=== PATIENT | male | born 1950 | race Caucasian/White ===

== ENCOUNTER 2017-01-09 17:14 | Emergency (ER) | payer BC ==
--- NOTE | 2017-01-09 18:00 | EDM.PDOC ---
ED HPI GENERAL MEDICAL PROBLEM - General Chief Complaint: Cardiovascular Problem Stated Complaint: SOB Time Seen by Provider: 01/09/17 17:58 Source of Information: Reports: Patient History Limitations: Reports: No Limitations - History of Present Illness INITIAL COMMENTS - FREE TEXT/NARRATIVE: Patient is a 66-year-old male presents ED with a 3 week history of shortness of breath and intermittent substernal chest discomfort onset with exertion and relieved with rest. Patient states over the past week or so he's noticed a significant decrease in his ability to be physically active. Unclear exact onset date for Rico fib. Does not report any significant palpitations. He was evaluated by his PCP earlier today with labwork, EKG, and chest x-ray obtained. Patient does have a history of 1st degree family history of heart disease brother and dad. He has no prior history himself. Currently does not smoke, utilize alcohol, or recreational drugs. Patient reports he does not go to the doctor that often. He has no prior diagnosis of hypertension, coronary disease, hypercholesteremia, diabetes, or any additional disease states. EKG revealed atrial fibrillation with variable rate 76-[address] changes. This was obtained at 1550. - Related Data Allergies Allergy/AdvReac Type Severity Reaction Status Date / Time No Known Allergies Allergy Verified 01/09/17 17:37 Home Meds: Home Meds . [No Known Home Meds] 01/09/17 [History] Social & Family History - Family History Cardiac: Reports: [place], Other (See Below) Other Cardiac Family History: dad with enlarged heart and passed of [place]-age 58; brother had bypass at age 63 and also leaky valve - Tobacco Use Smoking Status *Q: Never Smoker - Caffeine Use Caffeine Use: Reports: Coffee, Soda Other Caffeine Use: mountain dew and pepsi about 6 pac - Recreational Drug Use Recreational Drug Use: No ED ROS GENERAL - Review of Systems Review Of Systems: See Below Constitutional: Reports: No Symptoms Respiratory: Reports: No Symptoms Cardiovascular: Reports: No Symptoms GI/Abdominal: Reports: No Symptoms Musculoskeletal: Reports: No Symptoms Neurological: Reports: No Symptoms ED EXAM, GENERAL - Physical Exam Exam: See Below Exam Limited By: No Limitations General Appearance: Alert, WD/WN, No Apparent Distress Ears: Hearing Grossly Normal Nose: Normal Inspection Throat/Mouth: Normal Inspection, Normal Oropharynx, Normal Voice, No Airway Compromise Head: Atraumatic, Normocephalic Neck: Normal Inspection, Supple Respiratory/Chest: No Respiratory Distress, Lungs Clear, Normal Breath Sounds, No Accessory Muscle Use Cardiovascular: Normal Peripheral Pulses, Irregularly Irregular Peripheral Pulses: 2+: Radial (L), Radial (R) GI/Abdominal: Normal Bowel Sounds, Soft, Non-Tender, No Organomegaly, No Distention Back Exam: Normal Inspection Extremities: Normal Inspection, Normal Range of Motion, Non-Tender, No Pedal Edema, Normal Capillary Refill Neurological: Alert, Oriented, CN II-XII Intact, Normal Cognition, No Motor/ Sensory Deficits Psychiatric: Normal Affect, Normal Mood Skin Exam: Warm, Dry, Intact, Normal Color, No Rash Course - Vital Signs Last Recorded V/S: Last Vital Signs Temp 98.0 F 01/09/17 17:31 Pulse 110 H 01/09/17 19:38 Resp 20 01/09/17 17:31 BP 145/112 H 01/09/17 19:38 Pulse Ox - Orders/Labs/Meds Orders: Active Orders 24 hr Category Date Time Status Cardiac Monitoring [RC] . DIRECTED Care 01/09/17 19:23 Active EKG Documentation Completion [RC] STAT Care 01/09/17 19:33 Active Labs: Laboratory Tests 01/09/17 01/09/17 01/09/17 Range/Units 17:50 17:50 17:50 Plt Count 170 (163-337) K/mm3 PT (8.0-13.0) SECONDS INR APTT 26 (22-36) SECONDS Magnesium (1.8-2.4) mg/dl Troponin I 0.083 H* (0.00-0.056) ng/mL TSH 3rd Generation 2.043 (0.358-3.74) uIU/mL 01/09/17 01/09/17 Range/Units 17:50 17:50 Plt Count (163-337) K/mm3 PT 11.3 (8.0-13.0) SECONDS INR 1.03 APTT (22-36) SECONDS Magnesium 1.9 (1.8-2.4) mg/dl Troponin I (0.00-0.056) ng/mL TSH 3rd Generation (0.358-3.74) uIU/mL Meds: Medications Discontinued Medications Generic Name Dose Route Start Last Admin Trade Name Freq PRN Reason Stop Dose Admin Aspirin 324 mg 01/09/17 18:47 01/09/17 18:51 Aspirin PO 01/09/17 18:48 324 mg ONETIME ONE Administration Heparin Sodium/Dextrose 25,000 units in 500 mls @ 0 mls/hr 01/09/17 19:30 19:32 Heparin 25,000 Units In D5w 500 Ml IV 598.81 units/kg/hr TITRATE LETY 936 mls/hr Protocol Administration 12 UNITS/KG/HR Metoprolol Succinate 25 mg 01/09/17 19:22 01/09/17 19:33 Toprol Xl PO 01/09/17 19:23 25 mg ONETIME ONE Administration Metoprolol Tartrate 25 mg 01/09/17 19:34 01/09/17 19:38 Lopressor PO 01/09/17 19:35 25 mg ONETIME ONE Administration - Re-Assessments/Exams Free Text/Narrative Re-Assessment/Exam: EKG with admission to the ED atrial fibrillation at rate of [address] changes. CXR: Reviewed with Dr. De Paz and did not reveal any acute abnormalities. Final interpretation is pending. Previous lab work collected at 1557: White blood cell count 7.79, hemoglobin 15.3, platelet count 174, sodium 144, potassium 3.9, AG 13.9, creatinine 1.1, CK -MB 2.0, troponin mildly elevated 0.064. UA was also obtained revealing no concerning findings. Lipid panel was also obtain indicating cholesterol total 161, HDL cholesterol 36, LDL cholesterol 116, triglycerides 119. TSH was not obtained. I have ordered for repeat troponin and TSH. I do believe the elevated troponin is related to a troponin leak secondary to atrial fibrillation. Currently the rate is well-controlled. Patient is asymptomatic. He has no chest pain or shortness of breath. 1924 2nd Troponin 0.083. Ordered metoprolol 50mg PO and heparin drip with bolus. BP 145/111 with HR 95-102 variable. TSH: 2.[address] [facility] and spoke with one call coordinator. They will call back once Dr. Coleman is available. [address] Coleman he has accepted the patient. Ambulance has been notified. All transfer paperwork has been completed. All previous lab work will be faxed. Departure - Departure Time of Disposition: 20:27 Disposition: DC/Tfer to Acute Hospital 02 Reason for Transfer *Q: Other Condition: Good Clinical Impression: NSTEMI (non-ST elevated myocardial infarction) Referrals: Tera Arce PA-C [Primary Care Provider] - Forms: ED Department Discharge - My Orders Last 24 Hours: My Active Orders 01/09/17 19:23 Cardiac Monitoring [RC] . DIRECTED 01/09/17 19:33 EKG Documentation Completion [RC] STAT - Assessment/Plan Last 24 Hours: My Active Orders 01/09/17 19:23 Cardiac Monitoring [RC] . DIRECTED 01/09/17 19:33 EKG Documentation Completion [RC] STAT
[2017-01-09] MEDS ORDERED: Aspirin 81 MG Tab.Chew PO ONE (18:47)
[2017-01-09] MEDS ORDERED: Metoprolol Succinate 25 MG Tab.ER PO ONE (19:22)
[2017-01-09] MEDS ORDERED: Heparin Sodium/D5W 25,000 UNITS/500 ML BAG IV SCH (19:30)
[2017-01-09] MEDS ORDERED: Metoprolol Tartrate 50 MG Tab PO ONE (19:34)
== END 2017-01-09 20:32 ==
LOC: JD.ED 17:14
DX: I21.4 Non-ST elevation (NSTEMI) myocardial infarction (principal); I48.91 Unspecified atrial fibrillation; R07.89 Other chest pain; I20.8 Other forms of angina pectoris; R06.02 Shortness of breath; I51.7 Cardiomegaly
CPT/HCPCS: 36415; 71020; 80048; 80061; 81003; 82553; 83735; 84443; 84484; 85025; 85049; 85610; 85730; 93005; 99285; A9270; J1644; 93010; 96365

== ENCOUNTER 2020-03-22 02:31 | Emergency (ER) | payer BC, MEDICARE ==
--- NOTE | 2020-03-22 02:57 | EDM.PDOC ---
ED HPI GENERAL MEDICAL PROBLEM - General Chief Complaint: Chest Pain Stated Complaint: chest pain Time Seen by Provider: 03/22/20 02:40 - History of Present Illness INITIAL COMMENTS - FREE TEXT/NARRATIVE: 69-year-old male presents the emergency room with chest pain. This chest pain started around 1130 this evening and lasted about an hour following this he had continued pain mostly in his back this lasted for about an hour it had been resolved for about 30 minutes prior to arrival here to the emergency department. Upon arrival here he is pain-free. The patient has a history of a heart attack nearly 4 years ago. He had a stent placed. At that time he was also found to be in atrial fibrillation patient was started on Xarelto and and Brilinta. He had a stent placed. A couple of weeks after this he was brought back and had a elective cardioversion to get him out of atrial fibrillation and he is done fairly well since then. He has a strong family history of coronary artery disease. He does not smoke and never did. - Related Data Allergies Allergy/AdvReac Type Severity Reaction Status Date / Time No Known Allergies Allergy Verified 03/22/20 02:40 Home Meds: Home Meds Lisinopril 2.5 mg PO DAILY 01/23/17 [History] Metoprolol Tartrate 25 mg PO BID 01/23/17 [History] Nitroglycerin 0.4 mg SL ASDIRECTED PRN 01/23/17 [History] Rivaroxaban [Xarelto] 20 mg PO DAILY 01/23/17 [History] Ticagrelor [Brilinta] 90 mg PO BID 01/23/17 [History] atorvaSTATin Calcium [Atorvastatin Calcium] 40 mg PO DAILY 01/23/17 [History] dilTIAZem HCL [Dilt-Xr] 180 mg PO DAILY 03/22/20 [History] Past Medical History Cardiovascular History: Reports: Afib, High Cholesterol, Hypertension, [place] - Past Surgical History Cardiovascular Surgical History: Reports: Cardiac Ablation, Coronary Artery Stent Social & Family History - Family History Cardiac: Reports: [place], Other (See Below) Other Cardiac Family History: dad with enlarged heart and passed of [place]-age 58; brother had bypass at age 63 and also leaky valve - Tobacco Use Tobacco Use Status *Q: Never Tobacco User - Caffeine Use Caffeine Use: Reports: Coffee, Soda Other Caffeine Use: mountain dew and pepsi about 6 pac - Recreational Drug Use Recreational Drug Use: No ED ROS GENERAL - Review of Systems Review Of Systems: See Below Constitutional: Reports: No Symptoms HEENT: Reports: No Symptoms Respiratory: Reports: No Symptoms Cardiovascular: Reports: Chest Pain. Denies: Dyspnea on Exertion, Palpitations Endocrine: Reports: No Symptoms GI/Abdominal: Reports: No Symptoms : Reports: No Symptoms Musculoskeletal: Reports: No Symptoms Skin: Reports: No Symptoms Neurological: Reports: No Symptoms ED EXAM, GENERAL - Physical Exam Exam: See Below Exam Limited By: Uncooperative General Appearance: Alert, No Apparent Distress Head: Atraumatic, Normocephalic Neck: Normal Inspection, Supple, Non-Tender, Full Range of Motion Respiratory/Chest: No Respiratory Distress, Lungs Clear, Normal Breath Sounds Cardiovascular: Regular Rate, Rhythm, No Edema, No Murmur GI/Abdominal: Normal Bowel Sounds, Soft, Non-Tender Back Exam: Normal Inspection. No: CVA Tenderness (L), CVA Tenderness (R) Extremities: Normal Inspection, Normal Range of Motion, Non-Tender Neurological: Alert, Oriented, Normal Cognition Lymphatic: No Adenopathy #1 Interpretation EKG Date: 03/22/20 Rhythm: NSR [place]: Normal P-Wave: Present QRS: Normal (Non specific nondiagnostic changes) ST-T: Other (Nonspecific nondiagnostic changes) QT: Normal EKG Interpretation Comments: No significant change other than atrial fib has resolved from comparison made on 01/09/2017 Chronic abnormal EKG Course - Vital Signs Last Recorded V/S: Last Vital Signs Temp 36.9 C 03/22/20 02:36 Pulse 73 03/22/20 02:36 Resp 18 03/22/20 05:32 BP 113/80 03/22/20 05:32 Pulse Ox 95 03/22/20 05:32 - Orders/Labs/Meds Orders: Active Orders 24 hr Category Date Time Status Chest 1V Frontal [CR] Stat Exams 03/22/20 03:03 Taken Labs: Laboratory Tests 03/22/20 03/22/20 03/22/20 Range/Units 02:45 02:45 02:45 WBC 12.76 H (4.23-9.07) K/mm3 RBC 4.68 (4.63-6.08) M/mm3 Hgb 13.2 L (13.7-17.5) gm/dl Hct 41.0 (40.1-51.0) % MCV 87.6 (79.0-92.2) fl MCH 28.2 (25.7-32.2) pg MCHC 32.2 (32.2-35.5) g/dl RDW Std Deviation 40.2 (35.1-43.9) fL Plt Count 152 L (163-337) K/mm3 MPV 11.4 (9.4-12.3) fl Neut % (Auto) 81.5 H (34.0-67.9) % Lymph % (Auto) 8.8 L (21.8-53.1) % [place] % (Auto) 9.1 (5.3-12.2) % Eos % (Auto) 0.2 L (0.8-7.0) Baso % (Auto) 0.2 (0.1-1.2) % Neut # (Auto) 10.41 H (1.78-5.38) K/mm3 Lymph # (Auto) 1.12 L (1.32-3.57) K/mm3 [place] # (Auto) 1.16 H (0.30-0.82) K/mm3 Eos # (Auto) 0.02 L (0.04-0.54) K/mm3 Baso # (Auto) 0.02 (0.01-0.08) K/mm3 Manual Slide Review Abnormal smear PT 13.7 H (9.7-12.0) SECONDS INR 1.29 APTT 37.2 H (21.7-31.4) SECONDS Sodium 140 (136-145) mEq/L Potassium 3.8 (3.5-5.1) mEq/L Chloride 106 (98-107) mEq/L Carbon Dioxide 22 (21-32) mEq/L Anion Gap 15.8 H (5-15) BUN 15 (7-18) mg/dL Creatinine 1.2 (0.7-1.3) mg/dL Est Cr Clr Drug Dosing 55.85 mL/min Estimated GFR (MDRD) > 60 (>60) mL/min BUN/Creatinine Ratio 12.5 L (14-18) Glucose 134 H (80-115) mg/dL Calcium 8.7 (8.5-10.1) mg/dL Total Bilirubin 1.5 H (0.2-1.0) mg/dL AST 12 L (15-37) U/L ALT 18 (16-63) U/L Alkaline Phosphatase 66 (46-116) U/L Troponin I < 0.017 (0.00-0.056) ng/mL Total Protein 7.2 (6.4-8.2) g/dl Albumin 3.5 (3.4-5.0) g/dl Globulin 3.7 gm/dL Albumin/Globulin Ratio 1.0 (1-2) 03/22/20 Range/Units 04:25 WBC (4.23-9.07) K/mm3 RBC (4.63-6.08) M/mm3 Hgb (13.7-17.5) gm/dl Hct (40.1-51.0) % MCV (79.0-92.2) fl MCH (25.7-32.2) pg MCHC (32.2-35.5) g/dl RDW Std Deviation (35.1-43.9) fL Plt Count (163-337) K/mm3 MPV (9.4-12.3) fl Neut % (Auto) (34.0-67.9) % Lymph % (Auto) (21.8-53.1) % [place] % (Auto) (5.3-12.2) % Eos % (Auto) (0.8-7.0) Baso % (Auto) (0.1-1.2) % Neut # (Auto) (1.78-5.38) K/mm3 Lymph # (Auto) (1.32-3.57) K/mm3 [place] # (Auto) (0.30-0.82) K/mm3 Eos # (Auto) (0.04-0.54) K/mm3 Baso # (Auto) (0.01-0.08) K/mm3 Manual Slide Review PT (9.7-12.0) SECONDS INR APTT (21.7-31.4) SECONDS Sodium (136-145) mEq/L Potassium (3.5-5.1) mEq/L Chloride (98-107) mEq/L Carbon Dioxide (21-32) mEq/L Anion Gap (5-15) BUN (7-18) mg/dL Creatinine (0.7-1.3) mg/dL Est Cr Clr Drug Dosing mL/min Estimated GFR (MDRD) (>60) mL/min BUN/Creatinine Ratio (14-18) Glucose (80-115) mg/dL Calcium (8.5-10.1) mg/dL Total Bilirubin (0.2-1.0) mg/dL AST (15-37) U/L ALT (16-63) U/L Alkaline Phosphatase (46-116) U/L Troponin I < 0.017 (0.00-0.056) ng/mL Total Protein (6.4-8.2) g/dl Albumin (3.4-5.0) g/dl Globulin gm/dL Albumin/Globulin Ratio (1-2) Meds: Medications Discontinued Medications Generic Name Dose Route Start Last Admin Trade Name Freq PRN Reason Stop Dose Admin Aspirin 324 mg 03/22/20 03:02 03/22/20 03:26 Aspirin PO 03/22/20 03:03 324 mg ONETIME ONE Administration - Re-Assessments/Exams Free Text/Narrative Re-Assessment/Exam: 03/22/20 05:19 Patient has remained asymptomatic here in the emergency room work-up has been unremarkable including troponin x2. With the heart score applied he has a score of 4 2 points for his age 2 points for his past medical history including his [place]. We discussed the pros and cons of admission versus outpatient and the beatriz matthews would like to go home despite no longer being in the low risk category per the heart score. We will discharge home with close follow-up with his regular doctor and cardiology. Departure - Departure Time of Disposition: 05:21 Disposition: Home, Self-Care Clinical Impression: Chest pain Instructions: Nonspecific Chest Pain, Adult, [id number] Referrals: Tera Arce PA-C [Primary Care Provider] - Forms: ED Department Discharge Additional Instructions: Return to the emergency room with any questions problems or worsening symptoms. Follow-up with your regular healthcare provider later this week. Call your closing specialist today and let them know you were here. Ask for recommendations. Continue your current medications. Sepsis Event Note (ED) - Evaluation Sepsis Screening Result: No Definite Risk - Focused Exam Vital Signs: Vital Signs Temp Pulse Resp BP Pulse Ox 03/22/20 05:32 18 113/80 95 03/22/20 02:36 36.9 C 73 26 H 128/71 94 L - My Orders Last 24 Hours: My Active Orders 03/22/20 03:03 Chest 1V Frontal [CR] Stat - Assessment/Plan Last 24 Hours: My Active Orders 03/22/20 03:03 Chest 1V Frontal [CR] Stat
[2020-03-22] MEDS ORDERED: Aspirin 81 MG Tab.Chew PO ONE (03:02)
--- NOTE | 2020-03-22 09:42 | CR ---
Chest: Portable view of the chest was obtained. Comparison: Prior chest x-ray of 01/09/17. Heart is slightly enlarged. Tortuous thoracic aorta is seen. Lungs are clear with no acute parenchymal change. There is a minimal nodular density within the left mid lung which is stable from prior study compatible with granuloma. Bony structures are grossly intact. Impression: 1. Findings as noted above. 2. Nothing acute is appreciated. Diagnostic code #2
== END 2020-03-22 05:32 | disposition home or self-care (01) ==
LOC: JD.ED 02:31
DX: R07.9 Chest pain, unspecified (principal); I48.91 Unspecified atrial fibrillation; E78.00 Pure hypercholesterolemia, unspecified; I10 Essential (primary) hypertension; I25.2 Old myocardial infarction; R94.31 Abnormal electrocardiogram [ECG] [EKG]; Z79.899 Other long term (current) drug therapy; Z79.01 Long term (current) use of anticoagulants
CPT/HCPCS: 36415; 71045; 80053; 84484; 85025; 85610; 85730; 93005; 99285; A9270; 93010; 99284

== ENCOUNTER 2021-04-19 07:32 | Day surgery (SDC) | payer BC, MEDICARE ==
[~2021-04-19 07:32] MED LIST: Lactated Ringers 1,000 ML IV SCH; Lidocaine 1%/Sod Bicarbonate in NS 8.4% 1 ML Syringe IDERM PRN; Sodium Chloride 0.9% 10 ML Syringe FLUSH PRN; Sodium Chloride 0.9% 10 ML Syringe FLUSH SCH
[2021-04-19] MEDS ORDERED: Lidocaine 1% 4 ML ONE (08:29)
[2021-04-19] MEDS ORDERED: Propofol 200 MG/20 ML SDV ONE ×2 (08:30→09:43)
[2021-04-19] MEDS ORDERED: fentaNYL 100 MCG/2 ML SDV ONE (08:30)
== END 2021-04-19 10:50 | disposition home or self-care (01) ==
LOC: JD.SDS 07:32
PROVIDERS: ATTEND Surgery
DX: D12.3 Benign neoplasm of transverse colon (principal); K44.9 Diaphragmatic hernia without obstruction or gangrene; K64.8 Other hemorrhoids; I48.91 Unspecified atrial fibrillation; E78.5 Hyperlipidemia, unspecified; I25.2 Old myocardial infarction; I25.10 Atherosclerotic heart disease of native coronary artery without angina pectoris; Z91.018 Allergy to other foods; Z79.899 Other long term (current) drug therapy; Z98.890 Other specified postprocedural states
CPT/HCPCS: 45385; 88305; J2704; J3010; J7120; 00811

== ENCOUNTER 2022-11-13 12:55 | Inpatient (IN) | payer BC, MEDICARE ==
[2022-11-13] MEDS ORDERED: Sodium Chloride 0.9% 10 ML Syringe FLUSH PRN (13:27)
[2022-11-13 13:52] LABS: BASOPHILS PERCENT AUTO 0.4 % (0.0-1.0); EOSINOPHILS ABSOLUTE AUTO 0.1 K/mm3 (0.0-0.4); EOSINOPHILS PERCENT AUTO 1.3 % (0.0-6.0); HEMATOCRIT 19.7 % (42.0-52.0); IMMATURE GRAN ABSOLUTE AUTO 0.04 K/mm3 (0.00-0.05); IMMATURE GRAN PERCENT AUTO 0.7 % (0.0-0.4); LYMPHOCYTES ABSOLUTE AUTO 0.8 K/mm3 (1.0-4.8); MEAN CORPUSCULAR HEMOGLOBIN 29.3 pg (28.0-32.0); MEAN CORPUSCULAR VOLUME 88.7 fl (83.0-99.0); MEAN PLATELET VOLUME 10.8 fl (9.4-12.4); MONOCYTES ABSOLUTE AUTO 0.4 K/mm3 (0.0-0.8); MONOCYTES PERCENT AUTO 7.2 % (0.0-8.0); NEUTROPHILS ABSOLUTE AUTO 4.2 K/mm3 (1.8-7.7); NEUTROPHILS PERCENT AUTO 75.4 % (41.0-71.0); NRBC ABSOLUTE 0.04 (0.00-0.02); NRBC PERCENT 0.7 % (0.0-0.2); PLATELET COUNT,PLT 182 K/mm3 (150-400); RED BLOOD CELL COUNT 2.22 M/mm3 (4.52-5.90); WHITE BLOOD CELL COUNT,WBC 5.52 K/mm3 (3.9-11.3)
[2022-11-13 14:01] LABS: HEMOGLOBIN 6.5 gm/dl (14.0-18.0)
[2022-11-13 14:19] LABS: BILIRUBIN TOTAL 0.3 mg/dL (0.2-1.0); BUN/CREATININE RATIO 18.2 (14-18); CALCIUM 8.1 mg/dL (8.5-10.1); CREATININE 1.1 mg/dL (0.7-1.3); EST CRCL DRUG DOSING (CG) 57.19 mL/min
[2022-11-13] MEDS ORDERED: Ondansetron 4 MG Tab.DIS PO PRN (14:24)
[2022-11-13] MEDS ORDERED: Acetaminophen 325 MG Tab PO PRN (14:24)
[2022-11-13] MEDS ORDERED: Polyethylene Glycol/Electrolytes 4,000 ML Bottle PO ONE (14:31)
[2022-11-13] MEDS ORDERED: Sodium Chloride 0.9% 500 ML ONE (15:12)
[2022-11-13 15:28] LABS: CORONAVIRUS COVID-19 NAA NEGATIVE (NEGATIVE); INFLUENZA A NAA NEGATIVE (NEGATIVE); RESPIRATORY SYNCYTIAL VIR NAA NEGATIVE (NEGATIVE)
[2022-11-13] MEDS: Pantoprazole 40 MG Vial IVPUSH SCH (15:34)
[2022-11-13] MEDS: Dextrose 5%-0.45% NaCl 1,000 ML IV SCH (23:56)
[2022-11-14] MEDS: Pantoprazole 40 MG Vial IVPUSH SCH ×2 (02:33→15:06)
[2022-11-14 06:32] LABS: BASOPHILS PERCENT AUTO 0.4 % (0.0-1.0); EOSINOPHILS ABSOLUTE AUTO 0.1 K/mm3 (0.0-0.4); EOSINOPHILS PERCENT AUTO 2.2 % (0.0-6.0); HEMATOCRIT 23.5 % (42.0-52.0); HEMOGLOBIN 7.7 gm/dl (14.0-18.0); IMMATURE GRAN ABSOLUTE AUTO 0.02 K/mm3 (0.00-0.05); IMMATURE GRAN PERCENT AUTO 0.4 % (0.0-0.4); LYMPHOCYTES PERCENT AUTO 19.6 % (24.0-44.0); MEAN CORPUSCULAR HEMOGLOBIN 28.7 pg (28.0-32.0); MEAN CORPUSCULAR HGB CONC 32.8 g/dl (32.0-36.0); MEAN CORPUSCULAR VOLUME 87.7 fl (83.0-99.0); MEAN PLATELET VOLUME 10.9 fl (9.4-12.4); MONOCYTES ABSOLUTE AUTO 0.5 K/mm3 (0.0-0.8); MONOCYTES PERCENT AUTO 10.7 % (0.0-8.0); NEUTROPHILS ABSOLUTE AUTO 3.3 K/mm3 (1.8-7.7); NEUTROPHILS PERCENT AUTO 66.7 % (41.0-71.0); NRBC ABSOLUTE 0.02 (0.00-0.02); NRBC PERCENT 0.4 % (0.0-0.2); PLATELET COUNT,PLT 164 K/mm3 (150-400); RED BLOOD CELL COUNT 2.68 M/mm3 (4.52-5.90); WHITE BLOOD CELL COUNT,WBC 4.96 K/mm3 (3.9-11.3)
[2022-11-14] MEDS: Dextrose 5%-0.45% NaCl 1,000 ML IV SCH (09:22)
[2022-11-14] MEDS: Diltiazem 180 MG Cap.CD PO SCH (09:56)
[2022-11-14] MEDS ORDERED: Lactated Ringers 1,000 ML IV ONE (10:00)
[2022-11-14] MEDS ORDERED: Lidocaine 2% 100 MG/5 ML Syringe ONE ×2 (10:01→10:02)
[2022-11-14] MEDS ORDERED: Propofol 200 MG/20 ML SDV ONE (10:02)
[2022-11-14] MEDS ORDERED: Ondansetron 4 MG/2 ML SDV IVPUSH PRN (10:14)
[2022-11-14] MEDS ORDERED: EPINEPHrine 1 MG/ML SDV ONE (10:59)
[2022-11-14] MEDS ORDERED: EPINEPHrine 1:10,000 1 MG/10 ML Syringe ONE (11:10)
[2022-11-15] MEDS: Pantoprazole 40 MG Vial IVPUSH SCH (02:04)
[2022-11-15 06:05] LABS: ANION GAP 11.1 (5-15); BUN/CREATININE RATIO 9.1 (14-18); CALCIUM 8.3 mg/dL (8.5-10.1); CREATININE 1.1 mg/dL (0.7-1.3); EST CRCL DRUG DOSING (CG) 59.26 mL/min; MAGNESIUM 2.3 mg/dL (1.8-2.4); POTASSIUM,K 4.1 mEq/L (3.5-5.1)
[2022-11-15 06:15] LABS: BASOPHILS PERCENT AUTO 0.4 % (0.0-1.0); EOSINOPHILS ABSOLUTE AUTO 0.1 K/mm3 (0.0-0.4); EOSINOPHILS PERCENT AUTO 2.2 % (0.0-6.0); HEMATOCRIT 25.3 % (42.0-52.0); HEMOGLOBIN 8.2 gm/dl (14.0-18.0); IMMATURE GRAN ABSOLUTE AUTO 0.02 K/mm3 (0.00-0.05); IMMATURE GRAN PERCENT AUTO 0.4 % (0.0-0.4); LYMPHOCYTES PERCENT AUTO 18.4 % (24.0-44.0); MEAN CORPUSCULAR HEMOGLOBIN 28.9 pg (28.0-32.0); MEAN CORPUSCULAR HGB CONC 32.4 g/dl (32.0-36.0); MEAN CORPUSCULAR VOLUME 89.1 fl (83.0-99.0); MEAN PLATELET VOLUME 10.9 fl (9.4-12.4); MONOCYTES ABSOLUTE AUTO 0.5 K/mm3 (0.0-0.8); MONOCYTES PERCENT AUTO 9.2 % (0.0-8.0); NEUTROPHILS ABSOLUTE AUTO 3.9 K/mm3 (1.8-7.7); NEUTROPHILS PERCENT AUTO 69.4 % (41.0-71.0); PLATELET COUNT,PLT 183 K/mm3 (150-400); RED BLOOD CELL COUNT 2.84 M/mm3 (4.52-5.90); WHITE BLOOD CELL COUNT,WBC 5.55 K/mm3 (3.9-11.3)
[2022-11-15] MEDS: Diltiazem 180 MG Cap.CD PO SCH (08:07)
== END 2022-11-15 11:53 | disposition home or self-care (01) | DRG 241 ==
LOC: JD.ED 12:55 → JD.MS 14:40
PROVIDERS: ADMIT Hospitalist; ATTEND Hospitalist
PROC: 30233N1 Transfusion of Nonautologous Red Blood Cells into Peripheral Vein, Percutaneous Approach (ICD-10-PCS; 2022-11-13)
PROC: 0DB78ZX Excision of Stomach, Pylorus, Via Natural or Artificial Opening Endoscopic, Diagnostic (ICD-10-PCS; principal; 2022-11-14)
PROC: 0DJD8ZZ Inspection of Lower Intestinal Tract, Via Natural or Artificial Opening Endoscopic (ICD-10-PCS; 2022-11-14)
DX: K25.4 Chronic or unspecified gastric ulcer with hemorrhage (principal); D62 Acute posthemorrhagic anemia; I25.10 Atherosclerotic heart disease of native coronary artery without angina pectoris; I10 Essential (primary) hypertension; I48.91 Unspecified atrial fibrillation; Z20.822 Contact with and (suspected) exposure to COVID-19; E78.00 Pure hypercholesterolemia, unspecified; M19.90 Unspecified osteoarthritis, unspecified site; K21.9 Gastro-esophageal reflux disease without esophagitis; Z95.5 Presence of coronary angioplasty implant and graft; Z91.048 Other nonmedicinal substance allergy status; Z79.899 Other long term (current) drug therapy; Z79.01 Long term (current) use of anticoagulants; I25.2 Old myocardial infarction
CPT/HCPCS: 0241U; 36415; 36430; 80048; 80053; 83735; 85018; 85025; 86850; 86900; 86901; 86922; 99285; A9270-GY; C9113; J0171; J2704; J3490; J7040; J7042; J7120; P9016